=== PATIENT | female | born 1980 ===

== ENCOUNTER 2018-07-22 16:40 | Emergency (ER) | payer MEDICAID ==
[2018-07-22 17:19] VITALS: TEMP 98.2
--- NOTE | 2018-07-22 18:19 | C.PDOC ---
History Of Present Illness 38 y/o female presents to the ED complaining of cough, runny nose, and sore throat. Patient has had sick contact from her son who is in the ER with similar symptoms. She denies any other complaints at this time. Time Seen by Provider: 07/22/18 16:50 Chief Complaint (Nursing): Fever History Per: Patient History/Exam Limitations: no limitations Onset/Duration Of Symptoms: Days Current Symptoms Are (Timing): Still Present Past Medical History Reviewed: Historical Data, Nursing Documentation, Vital Signs Vital Signs: Last Vital Signs Temp 98.2 F 07/22/18 17:15 Pulse 108 H 07/22/18 17:15 Resp 18 07/22/18 17:15 BP 147/106 H 07/22/18 17:15 Pulse Ox 96 07/22/18 17:15 Primary Care Provider: [facility] - Medical History PMH: HTN (no meds) Family History: States: No Known Family Hx - Social History Hx Tobacco Use: No Hx Alcohol Use: No Hx Substance Use: No - Immunization History Hx Influenza Vaccination: No Hx Pneumococcal Vaccination: No Review Of Systems Constitutional: Negative for: Fever, Chills ENT: Positive for: Throat Pain (sore throat), Other (runny nose) Cardiovascular: Negative for: Chest Pain Respiratory: Positive for: Cough. Negative for: Shortness of Breath Gastrointestinal: Negative for: Vomiting Physical Exam - Physical Exam Appears: Non-toxic, No Acute Distress Skin: Warm, Dry Head: Normacephalic Eye(s): bilateral: Normal Inspection Oral Mucosa: Moist Throat: Normal, No Erythema, No Exudate Neck: Supple Cardiovascular: Rhythm Regular, No Murmur Respiratory: Normal Breath Sounds, No Rales, No Rhonchi, No Wheezing Extremity: Bilateral: Atraumatic, Normal ROM Neurological/Psych: Oriented x3, Normal Speech ED Course And Treatment O2 Sat by Pulse Oximetry: 96 (RA) Pulse Ox Interpretation: Normal Progress Note: Patient swabbed for flu, which was negative. Patient given motrin and tessalon perles, then discharged home. Disposition Counseled Patient/Family Regarding: Diagnosis, Need For Followup, Rx Given - Disposition Referrals: [facility] [Outside] Disposition: HOME/ ROUTINE Disposition Time: 18:20 Condition: STABLE Additional Instructions: FOLLOW UP WITH YOUR DOCTOR IN 1-2 DAYS USE MEDICATIONS NEEDED RETURN TO ER IF SYMPTOMS WORSEN Prescriptions: Benzonatate [Tessalon Perles] 100 mg PO BID PRN #15 sgl PRN Reason: Cough Ibuprofen [Motrin Tab] 600 mg PO Q6 PRN #30 tab PRN Reason: fever/pain Phenol/Glycerin [Chloraseptic Max [place]] 1 spray MM Q6 PRN #1 spray PRN Reason: THROAT PAIN Instructions: Viral Upper Respiratory Infection, Adult (DC) Forms: [employer] (Spanish) Print Language: MACEDONIAN - Clinical Impression Clinical Impression: Viral syndrome - Scribe Statement The provider has reviewed the documentation as recorded by the Kimo Euceda Provider Attestation: All medical record entries made by the Kimo were at my direction and personally dictated by me. I have reviewed the chart and agree that the record accurately reflects my personal performance of the history, physical exam, medical decision making, and the department course for this patient. I have also personally directed, reviewed, and agree with the discharge instructions and disposition.
[2018-07-22 18:40] VITALS: BP 144/96; PULSE 98; RESP 16
[2018-07-22 19:42] VITALS: O2SAT 96
== END 2018-07-22 18:41 | disposition home or self-care (01) ==
LOC: C.ER 16:40
DX: B34.9 Viral infection, unspecified (principal); I10 Essential (primary) hypertension